=== PATIENT | female | born 1990 | race Caucasian/White ===

== ENCOUNTER → 2018-03-15 | Emergency (ER) | payer OTHER ==
[~2018-03-15] VITALS: Ht 160 cm; Wt 74.8 kg
== END | disposition home or self-care (01) ==
LOC: ER 11:58
DX: S60.222A Contusion of left hand, initial encounter (principal); W22.8XXA Striking against or struck by other objects, initial encounter; Y93.89 Activity, other specified; Y92.69 Other specified industrial and construction area as the place of occurrence of the external cause; Y99.8 Other external cause status

== ENCOUNTER 2018-10-22 06:47 | Emergency (ER) | payer OTHER ==
[~2018-10-22] VITALS: Ht 160 cm; Wt 81.6 kg
[2018-10-22] MEDS ORDERED: ASMANEX220 MC1 IH (07:08)
[2018-10-22] MEDS ORDERED: SINGULAIR4 M1 (07:08)
[2018-10-22] MEDS ORDERED: NASONEX17 GM (07:08)
== END 2018-10-22 09:55 | disposition home or self-care (01) ==
LOC: ER 06:47
DX: S39.012A Strain of muscle, fascia and tendon of lower back, initial encounter (principal); V49.9XXA Car occupant (driver) (passenger) injured in unspecified traffic accident, initial encounter; Y93.89 Activity, other specified; Y92.488 Other paved roadways as the place of occurrence of the external cause; Y99.8 Other external cause status

== ENCOUNTER 2019-08-21 10:47 | Emergency (ER) | payer OTHER ==
[~2019-08-21] VITALS: Ht 160 cm; Wt 68.0 kg
[~2019-08-21 10:47] MED LIST: ASMANEX220 MC1 IH; NASONEX17 GM; SINGULAIR4 M1
== END 2019-08-21 15:10 | disposition home or self-care (01) ==
LOC: ER 10:47
DX: N94.6 Dysmenorrhea, unspecified (principal)

== ENCOUNTER 2022-12-09 08:25 | Emergency (ER) | payer OTHER ==
[~2022-12-09] VITALS: Ht 160 cm; Wt 62.1 kg
== END 2022-12-09 12:07 | disposition home or self-care (01) ==
LOC: ER 08:25
DX: M54.2 Cervicalgia (principal); B34.9 Viral infection, unspecified; Z20.822 Contact with and (suspected) exposure to COVID-19

== ENCOUNTER 2023-06-11 07:06 | Emergency (ER) | payer OTHER ==
[~2023-06-11] VITALS: Ht 160 cm; Wt 68.0 kg
[2023-06-11] MEDS ORDERED: OSEL75CA PO (09:57)
[2023-06-11] MEDS ORDERED: TUSNEL LIQUID178 ML PO (09:57)
== END 2023-06-11 10:22 | disposition home or self-care (01) ==
LOC: ER 07:06
PROVIDERS: General Practice
DX: J10.1 Influenza due to other identified influenza virus with other respiratory manifestations (principal); B34.9 Viral infection, unspecified; Z20.822 Contact with and (suspected) exposure to COVID-19
CPT/HCPCS: 36415; 96365; 96372; 99283; J1100; J3490

== ENCOUNTER → 2024-08-08 | Emergency (ER) | payer OTHER ==
[~2024-08-08] VITALS: Ht 160 cm; Wt 74.8 kg
[~2024-08-08] MED LIST changes: +OSEL75CA PO; +PAXIL20 MG; +TUSNEL LIQUID178 ML PO
== END | disposition home or self-care (01) ==
LOC: ER 14:41
DX: S30.0XXA Contusion of lower back and pelvis, initial encounter (principal); S00.93XA Contusion of unspecified part of head, initial encounter; W10.8XXA Fall (on) (from) other stairs and steps, initial encounter; Y93.89 Activity, other specified; Y92.89 Other specified places as the place of occurrence of the external cause; Y99.9 Unspecified external cause status